=== PATIENT | female | born 1950 | race Caucasian/White ===

== ENCOUNTER 2018-06-21 07:40 | Day surgery (SDC) | payer OTHER ==
[2018-06-16 11:01] VITALS: BMI 36.6
[2018-06-21] MEDS ORDERED: ROPIVACAINE HCL 0.5% 30ML VIAL ONE (09:25)
[2018-06-21] MEDS ORDERED: DEXAMETHASONE SOD PHOSPHATE/PF 10 MG/ML SDV ONE (09:25)
--- NOTE | 2018-06-21 09:33 | HP ---
Satellite H - Chief Complaint Chief Complaint: right shoulder pain. weakness History of Present Illness: right shoulder impingement syndrome, RTC tear History Source: Patient Limitations to Obtaining History: No Limitations - Past Medical History Allergies/Adverse Reactions: Allergies Allergy/AdvReac Type Severity Reaction Status Date / Time Penicillins Allergy Verified 06/21/18 08:37 - Current Medications Current Medications: Home Medications Medication Instructions Recorded Aspirin 81 mg PO DAILY 06/16/18 Losartan/Hydrochlorothiazide 1 each PO DAILY 06/16/18 [Losartan-Hctz 100-25 mg Tab] Rosuvastatin [Crestor -] 10 mg PO DAILY 06/16/18 Satellite Physical Exam - Physical Examination Vital Signs: Vital Signs Period Temp Pulse Resp BP Sys/Cheek Pulse Ox Last 24 Hr 97.7 F 61 20 152/75 96 General Appearance: Well Nourished ENT: Clear Lung: Clear to auscultation Heart: Regular rate & rhythm Breasts: Soft Abdomen: Soft Extremities: No edema Satellite Impression/Plan - Impression/Plan Impression: right shoulder impingement syndrome, RTC tear Operative Procedure: right shoulder arthroscopy, decompression, RTC repair Date to be Performed: 06/21/18
[2018-06-21] MEDS ORDERED: MIDAZOLAM HCL 2 MG/2 ML SINGLE DOSE VIAL ONE ×2 (09:51)
[2018-06-21] MEDS ORDERED: LIDOCAINE HCL/PF 2% SDV 5ML VIAL ONE (11:16)
[2018-06-21] MEDS ORDERED: SUCCINYLCHOLINE CHLORIDE 200 MG/10 ML VIAL ONE (11:17)
[2018-06-21] MEDS ORDERED: PROPOFOL 20 ML ONE (11:17)
[2018-06-21] MEDS ORDERED: ROCURONIUM BROMIDE 50 MG/5 ML VIAL ONE (11:33)
[2018-06-21] MEDS ORDERED: CLINDAMYCIN 600 MG PREMIX BAG IVPB ONE (11:40)
[2018-06-21] MEDS ORDERED: KETOROLAC TROMETHAMINE 30 MG/1 ML VIAL ONE (11:53)
[2018-06-21] MEDS ORDERED: ONDANSETRON 4 MG/2 ML VIAL ONE (11:53)
[2018-06-21] MEDS ORDERED: DEXAMETHASONE SOD PHOSPHATE 4 MG/1 ML VIAL ONE (11:53)
[2018-06-21] MEDS ORDERED: ePHEDrine SULFATE 50 MG/1 ML AMPULE ONE (12:29)
[2018-06-21] MEDS ORDERED: GLYCOPYRROLATE 0.2 MG/1 ML VIAL ONE ×2 (13:25)
[2018-06-21] MEDS ORDERED: NEOSTIGMINE METHYLSULFATE 0.5 MG/ML - 10 ML MDV ONE (13:25)
[2018-06-21] MEDS ORDERED: ONDANSETRON 4 MG/2 ML VIAL IVPUSH PRN (13:51)
[2018-06-21] MEDS ORDERED: oxyCODONE HCL 5 MG TABLET PO PRN (13:51)
[2018-06-21] MEDS ORDERED: PROMETHAZINE HCL 25 MG/1 ML VIAL IVPB PRN (13:51)
--- NOTE | 2018-06-21 13:54 | OP ---
Operative Note - Note: Operative Date: 06/21/18 Pre-Operative Diagnosis: right shoulder impingement syndrome, RTC tear Operation: Right shoulder arthroscopy, converted to open repair rotator cuff with anchors x2 Post-Operative Diagnosis: Same as Pre-op Surgeon: Aaron Bess Steel Rule Die Maker Apprentice: Yinka Nagel Anesthesiologist/MARINE WATER TENDER: Rodrick Arreaga Anesthesia: General Estimated Blood Loss (mls): 100 Drains & Tubes with Location: 900
--- NOTE | 2018-06-21 13:55 | SURG ---
Surgery Thoracic Medicine Specialist Note Thoracic Medicine Specialist: Yinka Nagel PA-C Date of Service: 06/21/18 Diagnosis: right shoulder impingement syndrome, RTC tear Procedure: Right shoulder arthroscopy, converted to open repair rotator cuff repair with anchors x2 I was present for the entirety of the operative procedure. For further detail, please refer to operative report. Visit type - Case Type Case Type: Scheduled - New patient This patient is new to me today: Yes Date on this admission: 06/21/18
[2018-06-21] MEDS ORDERED: LACTATED RINGERS SOLUTION 1,000 ML IV SCH (14:00)
--- NOTE | 2018-06-21 14:16 | OP ---
Operative Note - Note: Operative Date: 06/21/18 Pre-Operative Diagnosis: right shoulder impingement syndrome, RTC tear, AC joint OA Operation: right shoulder arthroscopy, subacromial decompression, distal clavicle excision, manipulation under anesthesia, mini open RTC repair Implants: Arthrex Swivel Lock anchors x 2, fiber wire x 8 Surgeon: Aaron Bess Production Hand: Yinka Nagel Anesthesiologist/CONSTRUCTION OPERATIONS MANAGER: Rodrick Arreaga Anesthesia: General, Local Specimens Removed: shavings Estimated Blood Loss (mls): 25 Drains, Volume Out (mls): 0 Blood Volume Replaced (mls): 0 Fluid Volume Replaced (mls): 700 Operative Report Dictated: Yes
[2018-06-21 15:39] VITALS: BP 144/82; PULSE 65; TEMP 97.4
--- NOTE | 2018-06-21 21:22 | SPEC ---
DATE OF OPERATION: 06/21/2018 PREOPERATIVE DIAGNOSIS: Right shoulder impingement syndrome, acromioclavicular joint arthritis, rotator cuff tear, and adhesive capsulitis. POSTOPERATIVE DIAGNOSIS: Right shoulder impingement syndrome, acromioclavicular joint arthritis, rotator cuff tear, and adhesive capsulitis. PROCEDURE: Right shoulder arthroscopy, subacromial decompression, distal clavicle excision, manipulation under anesthesia, and mini open rotator cuff repair. SURGEON: Yuliana Resendiz MD ELECTRONIC COMPONENTS ASSEMBLER: FRANCISCO JAVIER Aleman; Rodrick Arreaga MD ANESTHESIA: Right interscalene block with LM anesthesia. DRAINS: None. COMPLICATION: None. SPECIMEN: None. BLOOD LOSS: Minimal. BLOOD GIVEN: None. FLUID REPLACEMENT: 1000 mL. This patient is a 68-year-old female with an 11-month history of a right rotator cuff tear. In addition, she has right shoulder subacromial impingement and AC joint arthritis. After understanding the potential risks, complications, alternatives, and benefits to surgical versus nonsurgical treatment, the patient elected to undergo this procedure. DESCRIPTION: The patient was brought to the operating room, peripheral IV placed, and IV sedation given. Then 1200 mg of clindamycin was given. A right interscalene block was performed. LM anesthesia was induced. I manipulated the right shoulder in all planes, including forward flexion, abduction, internal and external rotation, and was able to stretch her further. She was placed into the beach chair position with ample padding throughout. The right upper extremity was prepped and draped in sterile fashion. The bony landmarks were marked out with a marking pen. A posterior portal was established. A diagnostic glenohumeral arthroscopy was performed. Immediately it was apparent the patient had a huge rotator cuff tear of the entire supraspinatus and infraspinatus tendons. The glenoid had mild grade 1 chondromalacia. The humeral head looked good, the biceps tendon looked good. The labrum was frayed but not torn. Next, our attention turned to the subacromial space. A lateral portal was established under direct visualization using a spinal needle and a number 15 scalpel blade, and a green cannula was introduced into the subacromial space. The patient had a tremendous amount of inflammatory bursitis. A soft tissue bursectomy was performed with the ArthroCare wand and the straight shaver. This revealed a huge subacromial and a moderate size subclavicular spur and a very large full-thickness rotator cuff tear. Additional bursectomy/extensive debridement was performed. Then using a 5.5-mm oval bur, I did a bony decompression and took off the spur on the undersurface of the clavicle and the acromion. Then I fine-tuned it using the bur in reverse and the shaver. Photographs were taken before and after and now there was much more room for the rotator cuff. The arm was put through a full range of motion. There were no points of impingement. Next, using arthroscopic technique, I put in 6 FiberWire sutures with the [employer] needle passer. I also took down a large bony spur in the humeral head with the oval bur. Next, all arthroscopic equipment was removed, the lateral portal was extended, subcutaneous hemostasis was achieved with the Bovie cautery. Zeke and Gelpi retractors were placed into the wound. The deltoid fascia was split in line with its fibers. Additional open bursectomy was performed. I checked the undersurface of the decompression and it was quite good. I then used a Rodriguez elevator to mobilize the rotator cuff tear. I was able to come down quite nicely. I then fed 3 FiberWires/6 tails through an anterior Arthrex Swivel-Lock anchor and put it down into the humeral head and then did the same thing with the posterior 6 tails. Overall, the entire supraspinatus and infraspinatus were repairable. They came down to the humeral head quite nicely onto the pre-prepared decorticated bed. Next, there was another small posterior rent so, using a freehand FiberWire suture, I repaired it. The area was copiously irrigated and washed out, overall looked quite good. Closure was done with 2-0 Vicryl in the deep dermal layer and final skin reapproximation was done with a running subcuticular 3-0 V-Loc suture. The posterior portals were closed with nylon. The area was then washed and dried, covered with 2 Aquacel dressings. A shoulder immobilizer was applied. The patient was extubated. She was stable throughout the case. There were no complications. After about 50 minutes of operative time, the patient was brought to the ambulatory recovery room in stable condition. YULIANA RESENDIZ M.D. [id number]
== END 2018-06-21 16:30 | disposition home or self-care (01) ==
LOC: JASU-SURG 07:40
PROVIDERS: ATTEND Orthopaedic Surgery
PROC: 0MN10ZZ Release Right Shoulder Bursa and Ligament, Open Approach (ICD-10-PCS; 2018-06-21)
PROC: 0RBJ4ZZ Excision of Right Shoulder Joint, Percutaneous Endoscopic Approach (ICD-10-PCS; principal; 2018-06-21 10:00)
PROC: 0PB94ZZ Excision of Right Clavicle, Percutaneous Endoscopic Approach (ICD-10-PCS; 2018-06-21 10:00)
DX: M75.41 Impingement syndrome of right shoulder (principal); M19.011 Primary osteoarthritis, right shoulder; M75.01 Adhesive capsulitis of right shoulder; M75.101 Unspecified rotator cuff tear or rupture of right shoulder, not specified as traumatic